=== PATIENT | female | born 1980 | race American Indian/Alaskan Native ===

== ENCOUNTER 2019-01-05 14:10 | Emergency (ER) | payer OTHER ==
--- NOTE | 2019-01-05 14:15 | PDOC ---
Rapid Medical Evaluation Medical Evaluation: I have performed a brief in-person evaluation of this patient. The patient presents with a chief complaint of: Pelvic abscess x 3-4 days; denies fever Pertinent physical exam findings: Pelvic deferred I have ordered the following: Nothing (patient did not want to take any pain meds currently when offered) The patient will proceed to the ED for further evaluation. 01/05/19 14:12
[2019-01-05 14:16] VITALS: BP 135/75; PULSE 76; TEMP 98.2; BMI 24.9
--- NOTE | 2019-01-05 14:23 | PDOC ---
History of Present Illness - General Chief Complaint: Abscess Boil Stated Complaint: Abscess Boil Time Seen by Provider: 01/05/19 14:12 History Source: Patient - History of Present Illness Initial Comments: 01/05/19 16:09 Chief complaint: Vaginal swelling Shows a healthy 38-year-old female who is [employer] druze who came in with . states that patient has had small little area of swelling to her vagina for a long time, has been evaluated by her doctor and did not need any treatment. Patient has not seen her TRANSITION MGR RN in the last few years she has noticed recently that it has gotten more swollen and tender. No fever. No discharge. GENERAL/CONSTITUTIONAL: No fever, weakness. dizziness HEAD, EYES, EARS, NOSE AND THROAT: No change in vision. No ear pain or discharge. No sore throat. CARDIOVASCULAR: No chest pain RESPIRATORY: No shortness of breath or cough GASTROINTESTINAL: No pain, nausea, vomiting, diarrhea or constipation GENITOURINARY: No dysuria MUSCULOSKELETAL: No neck or back pain SKIN: No rash NEUROLOGIC: No headache, vertigo, loss of consciousness, or loss of sensation. GENERAL: The patient is awake, alert, and fully oriented, in no acute distress. HEAD: Normal with no signs of trauma. EYES: Pupils equal, round and reactive to light, sclera anicteric, conjunctiva clear. ENT: pharynx: no erythema, no exudate, uvula midline NECK: supple CHEST: clear, nontender, rr ABD: soft, nontender Pelvic: obvious Bartholin's swelling to right labia, no erythema,+ tenderness but no discharge BACK: no tenderness or signs of injury EXTREMITIES: Normal range of motion, no edema. NEUROLOGICAL: Normal speech, normal gait. SKIN: Warm, Dry Past History - Past Medical History Allergies/Adverse Reactions: Allergies Allergy/AdvReac Type Severity Reaction Status Date / Time No Known Allergies Allergy Verified 01/05/19 14:16 Home Medications: Ambulatory Orders Clindamycin [Cleocin -] 300 mg PO Q6HPO #28 capsule 01/05/19 COPD: No Hypercholesterolemia: Yes - Suicide/Smoking/Psychosocial Hx Smoking History: Never smoked Hx Alcohol Use: No Drug/Substance Use Hx: No *Physical Exam - Vital Signs Last Vital Signs Temp Pulse Resp BP Pulse Ox 98.2 F 76 16 135/75 100 01/05/19 14:13 01/05/19 14:13 01/05/19 14:13 01/05/19 14:13 01/05/19 14:13 Procedures - Incision and Drainage I&D Site: Right: Bartholin Betadine cleansed: Yes Anesthesia: 2% Lidocaine Blade Size: 11 Plain Packing: Yes Complications: none Dressing: Yes Medical Decision Making - Medical Decision Making 01/05/19 16:14 38-year-old female with worsening Bartholin's swelling, tender, no gross erythema, no vaginal discharge. With and patient, will do incision and drainage. And drainage done with home therapy teacher ER software support technician Jen, done without any issues, large amount of fluid, blood, culture sent. Patient will be started on clindamycin, return to the ER on Tuesday for recheck and follow-up with her regular OB next week Discussed issues, findings, results, applicable medications and treatments and follow-up. All these were understood and all questions were answered *DC/Admit/Observation/Transfer Diagnosis at time of Disposition: Bartholin's gland abscess - Discharge Dispostion Disposition: HOME Condition at time of disposition: Stable Decision to Admit order: No - Prescriptions Prescriptions: Clindamycin [Cleocin -] 300 mg PO Q6HPO #28 capsule - Referrals Referrals: Tiffany Hollis MD [Staff Physician] - - Patient Instructions Printed Discharge Instructions: DI for Bartholin Gland Cyst Additional Instructions: Do not change the whole bandage, just take the outside bricklayer's assistant and leave the yellow gauze in place. Replace any gauze if there is bleeding to the outside gauze as instructed without taking the yellow bandage off. Return to the ED Tuesday for reevaluation. Take the clindamycin as instructed until finished even if you feel better Return to the ER if fever, getting worse, uncontrolled bleeding or other concerns You will need a full of valuation and exam with your recreation coordinator, call Tuesday and make an appointment for next week so that you can follow-up after you have a wound check in the ER on Tuesday - Post Discharge Activity
[2019-01-05] MEDS ORDERED: LIDOCAINE HCL 2% (20ML MULTI-DOSE VIAL) NR ONE (15:13)
== END 2019-01-05 15:53 | disposition home or self-care (01) ==
LOC: JERFT 14:10
PROC: 0U9L0ZZ Drainage of Vestibular Gland, Open Approach (ICD-10-PCS; principal; 2019-01-05)
DX: N75.1 Abscess of Bartholin's gland (principal)
CPT/HCPCS: 56420; 87070; 87205; 99281-25